=== PATIENT | male | born 1990 | race Caucasian/White ===

== ENCOUNTER 2016-10-16 01:46 | Emergency (ER) | payer OTHER ==
--- NOTE | ~2016-10-16 | ER ---
PATIENT'S NAME: CINTIA ARRIETA [facility] AGE: 25 Y [address] ROOM: [place] [address] LOCATION: ED ADMIT DATE: 10/16/2016 ER/Outpatient Report DISCHARGE DATE: 10/16/2016 FAMILY PHYSICIAN: Physician, Unknown ATTENDING PHYSICIAN: Mia Mcconnell HISTORY OF PRESENT ILLNESS: A 25-year-old male, brought in by EMS from [place]; now he presents today with chief complaint of intentional overdose. The patient states that he took 30 to 40 Klonopin 2-mg tablets, and drank alcohol in a suicide attempt. The patient says that he was ready to , and took this because he wanted to . He states that he had a high-school girlfriend, and then he went to long-term. She got by someone else, and then his relationship ended. The patient denies any pain at this time. He just says he feels depressed and sad. He took this about little over an hour ago. He says he first tried cutting his wrists, and that did not work. So, then he took all of his pills, and then went outside and then called EMS when on the curb, and sat outside and waited for them. The patient wants a cigarette right now. He has no other complaints. PAST MEDICAL HISTORY: Includes depression. PAST SURGICAL HISTORY: None. SOCIAL HISTORY: He smokes and drinks often and uses marijuana. MEDICATIONS: Seroquel, Zoloft, and Klonopin. ALLERGIES: TO DOXYCYCLINE. REVIEW OF SYSTEMS: Reviewed by me and negative with the exception of those discussed in HPI. PHYSICAL EXAMINATION: VITAL SIGNS: The patient is 104.3 kg, blood pressure is 133/74, heart rate is 100, respiratory rate is 16, temperature is 98.4, and saturations are 97%. GCS is 15. GENERAL: The patient is intoxicated, but he is not lethargic. He is maintaining his own respirations, trying to get up out of bed. He is speaking in full sentences. He is malodorous. PATIENT'S NAME: CINTIA ARRIETA [facility] AGE: 25 Y [address] ROOM: [place] [address] LOCATION: ED ADMIT DATE: 10/16/2016 ER/Outpatient Report DISCHARGE DATE: 10/16/2016 FAMILY PHYSICIAN: Physician, Unknown ATTENDING PHYSICIAN: Mia Mcconnell HEENT: His pupils are 5 mm, but they are equal bilaterally. He does not have any miosis. NEUROLOGICAL: GCS is 15. He is A and O x4. He has good eye contact and has normal speech, but he is unkempt, smells like alcohol, and is actively suicidal. CARDIAC: He is mildly tachy at 102 beats per minute . LUNGS: Sounds are clear. ABDOMEN: Soft, nontender, and nondistended. SKIN: Warm, dry, and intact. LABORATORY DATA AND DIAGNOSTIC STUDIES: We checked an EKG, which showed a sinus rhythm. He does not have QRS widening or QTc prolongation. The alcohol level was 0.233. The urine drug screen was negative for opioids and benzodiazepines except positive for marijuana. The rest of the lab work showed 10.2, H and H of 17.5/52.7, and platelets of 321. No bandemia. CMS: Sodium was 143, potassium was 3.4, chloride was 109, CO2 was 26, anion gap was 11.2, BUN was 7, and creatinine was 1.4. AST and ALT were also within normal limits. Salicylate and acetaminophen levels are undetected. EMERGENCY ROOM COURSE: The patient was repeatedly re-assessed. I am not convinced that he took all that Klonopin as he is not in the least bit tired. He could transfer out of bed, and he keeps asking to go smoke a cigarette. We spoke with Poison Control, who recommended the screening labs, and to observe him between one to four hours. We observed him for about an hour. We will be discharging him to [facility], and taken by Police to [facility]. IMPRESSION: Suicidal ideation, intentional drug ingestion. MD ARISTEO FOOTE/daylin /[id number] d: 10/16/16 0624 t: 05/01/17 0026, OUTPATIENT REPORT
[2016-10-16 02:11] LABS: BASOPHIL # 0.1 K/uL (0.0-0.2); BASOPHIL % 0.9 %; EOSINOPHIL # 0.1 K/uL (0.0-0.5); EOSINOPHIL % 0.6 %; HEMATOCRIT 52.7 % (37.0-53.0); HEMOGLOBIN 17.5 g/dL (12.0-17.0); IMMATURE GRANULOCYTE # 0.1 K/uL (0.0-0.3); LYMPHOCYTE # 2.4 K/uL (0.8-4.0); LYMPHOCYTE % 23.5 %; MCH 30.2 pg (27.0-34.0); MCHC 33.2 gm/dL (32.0-36.5); MCV 90.9 fl (83.0-98.0); MONOCYTE # 0.6 K/uL (0.0-1.0); MPV 9.6 fl (9.4-12.4); NEUTROPHIL # (ANC) 6.9 K/uL (1.4-9.0); NRBC % 0 /100WBC (0-0.00); PLATELET COUNT 321 K/uL (150-450); RDW-CV 14.8 % (11.9-14.6); WBC 10.2 K/uL (4.0-11.0)
[2016-10-16 02:14] LABS: AMPHETAMINE NEGATIVE (NEGATIVE); BARBITURATE NEGATIVE (NEGATIVE); COCAINE NEGATIVE (NEGATIVE); OPIATES NEGATIVE (NEGATIVE)
[2016-10-16 02:27] LABS: ALBUMIN 4.1 gm/dL (3.5-5.0); ALK PHOS 74 IU/L (33-138); ALT 55 IU/L (12-78); ANION GAP 11.4 (10.0-19.0); AST 25 IU/L (10-40); BLOOD UREA NITROGEN 7 mg/dL (6-24); CALCIUM 8.8 mg/dL (8.5-10.5); CHLORIDE 109 mMol/L (96-110); CO2 26 mMol/L (22-32); CREATININE 1.4 mg/dL (0.6-1.3); ESTIMATED GFR (MDRD EQUATION) > 60; POTASSIUM 3.4 mMol/L (3.7-5.1); SODIUM 143 mMol/L (135-145); TOTAL BILIRUBIN 0.2 mg/dL (0.0-1.5); TOTAL PROTEIN 8.4 g/dL (6.0-8.4)
[2016-10-16] MEDS ORDERED: KLONOPIN2 MG PO (13:44)
[2016-10-16] MEDS ORDERED: SEROQUEL400 MG PO (13:44)
[2016-10-16] MEDS ORDERED: ZOLOFT100 MG PO (13:45)
[2016-10-20] MEDS ORDERED: CYMBALTA60 MG PO (09:04)
[2016-10-20] MEDS ORDERED: FOLIC ACID1 MG PO (09:05)
[2016-10-20] MEDS ORDERED: NEURONTIN300 MG PO (09:06)
[2016-10-20] MEDS ORDERED: NICODERM / HABIT7 MG TRANS (09:07)
[2016-10-20] MEDS ORDERED: K-TAB 10MEQ10 MEQ PO (09:09)
[2016-10-20] MEDS ORDERED: SEROQUEL100 MG PO (09:13)
[2016-10-20] MEDS ORDERED: ZOLOFT50 MG PO (09:14)
[2016-10-20] MEDS ORDERED: THIAMINE HCL100 MG PO (09:15)
[2016-10-20] MEDS ORDERED: SEROQUEL200 MG PO (09:41)
[2016-10-22] MEDS ORDERED: NICODERM / HABIT7 MG TOP (09:17)
[2016-10-22] MEDS ORDERED: KCL - MICRO-K10 MEQ PO (09:26)
== END 2016-10-16 03:16 | disposition disaster alternative care site (69) ==
LOC: GMED 01:46
PROVIDERS: Emergency Medicine
DX: T42.4X2A Poisoning by benzodiazepines, intentional self-harm, initial encounter (principal); F32.9 Major depressive disorder, single episode, unspecified; F17.210 Nicotine dependence, cigarettes, uncomplicated; Z79.899 Other long term (current) drug therapy; Z88.1 Allergy status to other antibiotic agents
CPT/HCPCS: G0480; J7030